=== PATIENT | male | born 1935 | race Caucasian/White ===

== ENCOUNTER 2017-09-09 16:13 | Inpatient (IN) | payer MEDICARE ==
[~2017-09-09] VITALS: Ht 177.8 cm; Wt 79.4 kg
--- NOTE | 2017-09-09 16:29 | Emergency Room Report ---
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 reports that the patient does have Alzheimer's And sometimes does not get the full history There was no reports of vomiting or diarrhea patient has gained significant weight over the past 5 days Allergies: Coded Allergies: SULFA (SULFONAMIDE ANTIBIOTICS) (Unverified Allergy, Unknown, 09/09/17) Uncoded Allergies: SULFA (Allergy, Unknown, 09/09/17) Patient History Past Medical History: see triage record Pertinent Family History: none Reviewed Nursing Documentation: PMH: Agreed; PSxH: Agreed Nursing Documentation-PMH Past Medical History: No History, Except For Review of Systems All Other Systems: negative except mentioned in HPI Physical Exam Vital Signs Date Time Temp Pulse Resp B/P (MAP) Pulse Ox O2 Delivery O2 Flow Rate FiO2 09/09/17 16:09 98.1 90 20 128/75 97 Room Air 98.1 Sp02 EP Interpretation: reviewed, normal General Appearance: well appearing Head: normocephalic, atraumatic Eyes: bilateral eye PERRL, bilateral eye EOMI ENT: hearing grossly normal, normal pharynx, TMs + canals normal, uvula midline Neck: full range of motion, supple, no meningismus, no bony tend Respiratory: no respiratory distress, no retraction, no accessory muscle use, crackles - bilaterally Cardiovascular #1: normal peripheral pulses, regular rate, rhythm, no gallop, no JVD, no murmur Gastrointestinal: normal bowel sounds, non tender, no organomegaly, no guarding , no hernia, no pulsatile mass, no rebound, other - Positive ascites Genitourinary: no CVA tenderness Musculoskeletal: normal inspection Neurologic: oriented x3, responsive, home and family living professor III-XII nml as tested, motor strength/ tone normal, sensory intact Psychiatric: mood/affect normal Skin: warm/dry, palpation normal, other - edema bilaterally Lymphatic: normal inspection, no adenopathy Medical Decision Making Diagnostic Impression: Primary Impression: Dyspnea Additional Impressions: Liver disease Ascites ER Course Patient is complex with multiple differentials considered Requiring blood work and imaging Imaging does not show any large effusion blood work revealing abnormal liver enzymes Patient is mildly tachypneic Appears to likely will benefit from paracentesis however does not be to be emergent and is scheduled for next available Labs Test 09/09/17 17:15 09/09/17 20:45 White Blood Count 9.3 K/UL (4.8-10.8) Red Blood Count 3.07 M/UL (4.70-6.10) Hemoglobin 10.8 G/DL (14.2-18.0) Hematocrit 33.3 % (42.0-52.0) Mean Corpuscular Volume 109 FL (80-99) Mean Corpuscular Hemoglobin 35.1 PG (27.0-31.0) Mean Corpuscular Hemoglobin Concent 32.3 G/DL (32.0-36.0) Red Cell Distribution Width 17.3 % (11.6-14.8) Platelet Count 217 K/UL (150-450) Mean Platelet Volume 7.7 FL (6.5-10.1) Neutrophils (%) (Auto) 69.9 % (45.0-75.0) Lymphocytes (%) (Auto) 18.1 % (20.0-45.0) Monocytes (%) (Auto) 7.3 % (1.0-10.0) Eosinophils (%) (Auto) 2.8 % (0.0-3.0) Basophils (%) (Auto) 1.9 % (0.0-2.0) Prothrombin Time 14.7 SEC (9.30-11.50) Prothromb Time International Ratio 1.4 (0.9-1.1) Activated Partial Thromboplast Time 32 SEC (23-33) Sodium Level 139 MMOL/L (136-145) Potassium Level 5.7 MMOL/L (3.5-5.1) Chloride Level 108 MMOL/L (98-107) Carbon Dioxide Level 21 MMOL/L (21-32) Anion Gap 10 mmol/L (5-15) Blood Urea Nitrogen 27 mg/dL (7-18) Creatinine 1.5 MG/DL (0.55-1.30) Estimat Glomerular Filtration Rate mL/min (>60) Glucose Level 144 MG/DL (74-106) Calcium Level 8.3 MG/DL (8.5-10.1) Total Bilirubin 2.2 MG/DL (0.2-1.0) Direct Bilirubin 1.2 MG/DL (0.0-0.3) Aspartate Amino Transf (AST/SGOT) 143 U/L (15-37) Alanine Aminotransferase (ALT/SGPT) 68 U/L (12-78) Alkaline Phosphatase 195 U/L (46-116) Total Creatine Kinase 144 U/L (26-308) Creatine Kinase MB 1.9 NG/ML (0.0-3.6) Creatine Kinase MB Relative Index 1.3 Troponin I 0.014 ng/mL (0.000-0.056) 0.015 ng/mL (0.000-0.056) Pro-B-Type Natriuretic Peptide 247 pg/mL (0-125) Total Protein 7.1 G/DL (6.4-8.2) Albumin 2.2 G/DL (3.4-5.0) Globulin 4.9 g/dL Albumin/Globulin Ratio 0.4 (1.0-2.7) Lipase 553 U/L (73-393) Rhythm Strip Diag. Results EP Interpretation: yes Rate: 78 Rhythm: NSR, no PVC's, no ectopy Chest X-Ray Diagnostic Results Chest X-Ray Diagnostic Results : Chest X-Ray Ordered: Yes # of Views/Limited/Complete: 1 View Indication: Chest Pain EP Interpretation: Yes Interpretation: no consolidation, no effusion, no pneumothorax, other - Borderline cardiomegaly Impression: No acute disease Electronically Signed by: Ekaterina Reynoso DO Last Vital Signs Date Time Temp Pulse Resp B/P (MAP) Pulse Ox O2 Delivery O2 Flow Rate FiO2 09/09/17 16:09 98.1 90 20 128/75 97 Room Air 98.1 Status: improved Disposition: ADMITTED INPATIENT Condition: Serious Ekaterina Reynoso DO September 09, 2017 16:29
[2017-09-09 17:45] LABS: BASOPHILS % (AUTO) 1.9 % (0.0-2.0); EOSINOPHILS % (AUTO) 2.8 % (0.0-3.0); HEMATOCRIT 33.3 % (42.0-52.0); HEMOGLOBIN 10.8 G/DL (14.2-18.0); LYMPHOCYTES % (AUTO) 18.1 % (20.0-45.0); MEAN CORPUSCULAR VOLUME 109 FL (80-99); MONOCYTES % (AUTO) 7.3 % (1.0-10.0); NEUTROPHILS % (AUTO) 69.9 % (45.0-75.0); PLATELET COUNT 217 K/UL (150-450); RED BLOOD COUNT 3.07 M/UL (4.70-6.10); RED CELL DISTRIBUTION WIDTH 17.3 % (11.6-14.8); WHITE BLOOD COUNT 9.3 K/UL (4.8-10.8)
[2017-09-09 17:48] LABS: INR 1.4 (0.9-1.1)
[2017-09-09 17:49] LABS: ANION GAP 10 mmol/L (5-15); BLOOD UREA NITROGEN 27 mg/dL (7-18); CALCIUM 8.3 MG/DL (8.5-10.1); CARBON DIOXIDE 21 MMOL/L (21-32); CHLORIDE 108 MMOL/L (98-107); CREATININE 1.5 MG/DL (0.55-1.30); POTASSIUM 5.7 MMOL/L (3.5-5.1); SODIUM 139 MMOL/L (136-145)
[2017-09-09] MEDS ORDERED: ARICEPT10 MG ORAL (17:50)
[2017-09-09] MEDS ORDERED: REMERON15 MG ORAL (17:50)
[2017-09-09] MEDS ORDERED: ASPIR 8181 MG ORAL (17:50)
[2017-09-09] MEDS ORDERED: PANTOPRAZOLE SO40 MG ORAL (17:50)
[2017-09-09] MEDS ORDERED: MEGESTROL400 MG/11 PO (17:50)
[2017-09-09] MEDS ORDERED: VITAMIN B-12500 MCG ORAL (17:50)
[2017-09-09] MEDS ORDERED: VITAMIN D1000 UNI1 ORAL (17:50)
[2017-09-09] MEDS ORDERED: CLOPIDOGREL75 MG ORAL (17:50)
[2017-09-09] MEDS ORDERED: TAMSULOSIN HCL0.4 MG ORAL (17:50)
[2017-09-09] MEDS ORDERED: FOLIC ACID1 MG ORAL (17:50)
[2017-09-09] MEDS ORDERED: RAPAFLO8 MG ORAL (17:50)
[2017-09-09] MEDS ORDERED: CRESTOR20 MG ORAL (17:50)
[2017-09-09 18:00] VITALS: BP 134/72
[2017-09-09 18:05] LABS: ALANINE AMINOTRANSFERASE 68 U/L (12-78); ALBUMIN 2.2 G/DL (3.4-5.0); ALBUMIN/GLOBULIN RATIO 0.4 (1.0-2.7); ALKALINE PHOSPHATASE 195 U/L (46-116); ASPARTATE AMINO TRANSFERASE 143 U/L (15-37); BILIRUBIN,TOTAL 2.2 MG/DL (0.2-1.0); CKMB 1.9 NG/ML (0.0-3.6); CREATINE KINASE 144 U/L (26-308)
[2017-09-09 18:11] LABS: BILIRUBIN,DIRECT 1.2 MG/DL (0.0-0.3)
[2017-09-09] MEDS ORDERED: Sodium Polystyrene Sulfonate 15gm Powder ORAL ONE (18:30)
[2017-09-09] MEDS ORDERED: Sodium Polystyrene Sulfonate 15gm Powder ONE (18:34)
[2017-09-09] MEDS ORDERED: Albuterol/Ipratropium 3ml neb HHN PRN (18:45)
--- NOTE | 2017-09-09 18:51 | History and Physical ---
History of Present Illness General Date patient seen: September 09, 2017 Time patient seen: 18:49 Reason for Hospitalization: Dyspnea/Respdistress Present Illness HPI This is a 81 y/o male with a PMH of liver cirrhosis w/ ascites, renal insufficiency, HTN, anemia, BPH, pancreatitis, pancytopenia, CAD s/p PCI with TIGRE x 2 in 2013, and s/p cervical fusion who presented to ED for SOB. Patient states that SOB was worsening, and his PCP doctor at [facility] advised him to go to the ER. Patient also reports generalized abdominal pain but no nausea or vomiting. Patient was noted to have a K of 5.7 and was given kayexalate in the ER and lipase in the 300s. Paracentesis was ordered per ED given ascites and SOB. Patient also stated that he was recently admitted to [facility] from 08/25-. Per chart review from [facility], patient was aditted for dizziness and generalized weakness which was attributed to the lasix and aldactone he was previously on. Patient was also noted to have pancreatitis, which resolved while he was in the hospital. Lasix and aldactone subsequently were stopped also given hyperkalemia. Patient underwent paracentesis on 09/03 with 3L out along with 25g albumin. Patient's blood pressure continued to remain low and therefore metoprolol was discontinued upon discharge from [facility]..Patient's Cr improved from 1.8 to 1.1 upon discharge. Patient was also noted to have poor PO intake and was started on megace. At this time, patient denies any chest pain, n /v, focal deficits, headaches, f/c, d/c. Denies alcohol or tobacco abuse. Allergies: Coded Allergies: SULFA (SULFONAMIDE ANTIBIOTICS) (Unverified Allergy, Unknown, 09/09/17) Uncoded Allergies: SULFA (Allergy, Unknown, 09/09/17) Medication History Scheduled Aspirin* (Aspir 81*), 81 MG ORAL DAILY, (Reported) Cholecalciferol (Vitamin D3)* (Vitamin D*), 4,000 UNITS ORAL DAILY, (Reported) Clopidogrel* (Clopidogrel*), 75 MG ORAL DAILY, (Reported) Cyanocobalamin (Vitamin B-12)* (Vitamin B-12*), 1,000 MCG ORAL DAILY, (Reported) Donepezil Hcl* (Aricept*), 10 MG ORAL DAILY, (Reported) Folic Acid* (Folic Acid*), 1 MG ORAL DAILY, (Reported) Megestrol Acetate (Megestrol Acetate), 400 MG PO BID, (Reported) Mirtazapine* (Remeron*), 15 MG ORAL BEDTIME, (Reported) Pantoprazole* (Pantoprazole*), 40 MG ORAL DAILY, (Reported) Rosuvastatin Calcium* (Crestor*), 20 MG ORAL DAILY, (Reported) Silodosin (Rapaflo), 8 MG ORAL DAILY, (Reported) Tamsulosin Hcl (Tamsulosin Hcl*), 0.4 MG ORAL BEDTIME, (Reported) Patient History History Provided By: Patient, Family Member Healthcare decision maker Resuscitation status Advanced Directive on File No Review of Systems Constitutional: Reports: weakness Eye: Reports: no symptoms ENT: Reports: no symptoms Respiratory: Reports: shortness of breath Cardiovascular: Reports: no symptoms Gastrointestinal: Reports: abdominal pain Genitourinary: Reports: no symptoms Musculoskeletal: Reports: no symptoms Skin: Reports: no symptoms Psychiatric: Reports: no symptoms Neurological: Reports: no symptoms Endocrine: Reports: no symptoms Hematologic/Lymphatic: Reports: no symptoms Physical Exam General Appearance: alert, mild distress HEENT: normocephalic, atraumatic Neck: non-tender, normal alignment, supple Respiratory/Chest: chest wall non-tender, lungs clear, normal breath sounds Cardiovascular/Chest: normal peripheral pulses, normal rate, regular rhythm Abdomen: normal bowel sounds, soft, tender Extremities: normal range of motion, non-tender Skin Exam: normal pigmentation, warm/dry Neurologic: store consultant II-XII grossly normal, no motor/sensory deficits, alert, oriented x 3 Last 24 Hour Vital Signs Date Time Temp Pulse Resp B/P (MAP) Pulse Ox O2 Delivery O2 Flow Rate FiO2 09/09/17 18:00 98.3 85 19 134/72 100 Nasal Cannula 2.0 98.3 09/09/17 16:30 92 21 Room Air 09/09/17 16:09 98.1 90 20 128/75 97 Room Air 98.1 Laboratory Tests Test 09/09/17 17:15 White Blood Count 9.3 K/UL (4.8-10.8) Red Blood Count 3.07 M/UL (4.70-6.10) L Hemoglobin 10.8 G/DL (14.2-18.0) L Hematocrit 33.3 % (42.0-52.0) L Mean Corpuscular Volume 109 FL (80-99) H Mean Corpuscular Hemoglobin 35.1 PG (27.0-31.0) H Mean Corpuscular Hemoglobin Concent 32.3 G/DL (32.0-36.0) Red Cell Distribution Width 17.3 % (11.6-14.8) H Platelet Count 217 K/UL (150-450) Mean Platelet Volume 7.7 FL (6.5-10.1) Neutrophils (%) (Auto) 69.9 % (45.0-75.0) Lymphocytes (%) (Auto) 18.1 % (20.0-45.0) L Monocytes (%) (Auto) 7.3 % (1.0-10.0) Eosinophils (%) (Auto) 2.8 % (0.0-3.0) Basophils (%) (Auto) 1.9 % (0.0-2.0) Prothrombin Time 14.7 SEC (9.30-11.50) H Prothromb Time International Ratio 1.4 (0.9-1.1) H Activated Partial Thromboplast Time 32 SEC (23-33) Sodium Level 139 MMOL/L (136-145) Potassium Level 5.7 MMOL/L (3.5-5.1) H Chloride Level 108 MMOL/L (98-107) H Carbon Dioxide Level 21 MMOL/L (21-32) Anion Gap 10 mmol/L (5-15) Blood Urea Nitrogen 27 mg/dL (7-18) H Creatinine 1.5 MG/DL (0.55-1.30) H Estimat Glomerular Filtration Rate mL/min (>60) Glucose Level 144 MG/DL (74-106) H Calcium Level 8.3 MG/DL (8.5-10.1) L Total Bilirubin 2.2 MG/DL (0.2-1.0) H Direct Bilirubin 1.2 MG/DL (0.0-0.3) H Aspartate Amino Transf (AST/SGOT) 143 U/L (15-37) H Alanine Aminotransferase (ALT/SGPT) 68 U/L (12-78) Alkaline Phosphatase 195 U/L (46-116) H Total Creatine Kinase 144 U/L (26-308) Creatine Kinase MB 1.9 NG/ML (0.0-3.6) Creatine Kinase MB Relative Index 1.3 Troponin I 0.014 ng/mL (0.000-0.056) Pro-B-Type Natriuretic Peptide 247 pg/mL (0-125) H Total Protein 7.1 G/DL (6.4-8.2) Albumin 2.2 G/DL (3.4-5.0) L Globulin 4.9 g/dL Albumin/Globulin Ratio 0.4 (1.0-2.7) L Lipase 553 U/L (73-393) H Height (Feet): 5 Height (Inches): 10.00 Weight (Pounds): 175 Assessment/Plan Problem List: (1) Liver cirrhosis ICD Codes: K74.60 - Unspecified cirrhosis of liver SNOMED: 87111472 (2) Renal insufficiency ICD Codes: N28.9 - Disorder of kidney and ureter, unspecified SNOMED: 156370297, 278220799 (3) BPH (benign prostatic hyperplasia) ICD Codes: N40.0 - Benign prostatic hyperplasia without lower urinary tract symptoms SNOMED: 633097367 (4) Anemia ICD Codes: D64.9 - Anemia, unspecified SNOMED: 926506220 (5) Hyperkalemia ICD Codes: E87.5 - Hyperkalemia SNOMED: 57025199 (6) CAD S/P percutaneous coronary angioplasty ICD Codes: I25.10 - Atherosclerotic heart disease of [place] coronary artery without angina pectoris; Z98.61 - Coronary angioplasty status SNOMED: 402408069 (7) S/P drug eluting coronary stent placement ICD Codes: Z95.5 - Presence of coronary angioplasty implant and graft SNOMED: 92982749, 433999159 (8) Pancreatitis ICD Codes: K85.90 - Acute pancreatitis without necrosis or infection, unspecified SNOMED: 29261715 (9) Ascites ICD Codes: R18.8 - Other ascites SNOMED: 034717553 (10) Dyspnea ICD Codes: R06.00 - Dyspnea, unspecified SNOMED: 657129714 Status: stable Assessment/Plan Admit to telemetry GI consulted NPO, bowel rest IVF with D5 1/2 NS at low rate, 50 cc/hr Check etiology for pancreatitis - check TG, EtOH, Check CRP, LDH Paracentesis ordered by ED check Abd U/S, r/o gallstone pancreatitis Replete lytes prn Monitor CBC, BMP, Mg Check EKG. Trend trops x 3 given SOB. F/u CXR. Check bilateral lower extremity venous duplex Pain control and supportive care Resume home meds. Hold plavix given paracentesis DVT Prophylaxis: SCD Code Status: Full Hospital Classification Declaration: Based on this initial evaluation, and depending on the patient's clinical course, I anticipate that this patient will require hospitalization for 2-3 days for pancreatitis, ascites and close respiratory/hemodynamic monitoring. Disposition: Once the patient is stable to leave the hospital, I anticipate the patient will likely be discharged to the following environment: home with HH vs SNF I spent 73 minutes on this patient's case, and 38 minutes were dedicated to counseling and/or care coordination. Discussed with patient/family, nursing staff, SW/CM, and GI regarding clinical status, treatment course, and disposition planning. Time of note may not reflect time of encounter. Zoey Fernandes NP September 09, 2017 18:51
[2017-09-09 20:00] VITALS: BP 137/77
[2017-09-09] MEDS: D5 1/2NS 1,000 ML IV SCH (20:31)
[2017-09-09] MEDS: traMADol 50mg tab ORAL PRN (23:52)
[2017-09-10] VITALS: BP 130/75
[2017-09-10 04:00] VITALS: BP 137/75
--- NOTE | 2017-09-10 07:50 | Diagnostic Imaging Report ---
Indication: Shortness of breath Technique: One view of the chest Comparison: none Findings: Right hemidiaphragm is elevated. Inspiration is overall suboptimal. Lungs and pleural spaces are clear. The heart size is normal Impression: No acute process
[2017-09-10 08:00] VITALS: BP 135/77
[2017-09-10] MEDS: Megace 400mg/10ml Susp ORAL SCH ×2 (08:55→18:16)
[2017-09-10] MEDS: Aspirin Baby 81mg ORAL SCH (08:55)
[2017-09-10] MEDS: Vitamin D 1000 IU Tab ORAL SCH (08:56)
[2017-09-10] MEDS: Vitamin B-12 500mcg tab ORAL SCH (08:56)
--- NOTE | 2017-09-10 11:04 | GI Initial Consult Note ---
History of Present Illness General Date patient seen: September 10, 2017 Time patient seen: 11:01 Reason for Hospitalization: Dyspnea/Respdistress Referring physician: CHRIS MULLEN Reason for Consultation: CIRRHOSIS Present Illness HPI This is a 81 y/o male with a PMH of liver cirrhosis w/ ascites, renal insufficiency, HTN, anemia, BPH, pancreatitis, pancytopenia, CAD s/p PCI with TIGRE x 2 in 2013, and s/p cervical fusion who presented to ED for SOB. Patient states that SOB was worsening, and his PCP doctor at [facility] advised him to go to the ER. Patient also reports generalized abdominal pain but no nausea or vomiting. Patient was noted to have a K of 5.7 and was given kayexalate in the ER and lipase in the 300s. Paracentesis was ordered per ED given ascites and SOB. Patient also stated that he was recently admitted to [facility] from 08/25-. Per chart review from [facility], patient was aditted for dizziness and generalized weakness which was attributed to the lasix and aldactone he was previously on. Patient was also noted to have pancreatitis, which resolved while he was in the hospital. Lasix and aldactone subsequently were stopped also given hyperkalemia. Patient underwent paracentesis on 09/03 with 3L out along with 25g albumin. Patient's blood pressure continued to remain low and therefore metoprolol was discontinued upon discharge from [facility]..Patient's Cr improved from 1.8 to 1.1 upon discharge. Patient was also noted to have poor PO intake and was started on megace. At this time, patient denies any chest pain, n /v, focal deficits, headaches, f/c, d/c. Denies alcohol or tobacco abuse. GI consulted for cirrhosis management. PT seen, awake A&Ox3 NAD with no active s/sx of N/V/D with caregiver at bedside. HPI as noted above. Labs reviewed, with macrocytic hyperchromic anemia, abrnormal LFTs, generalized jaundice, and elevated lipase levels. Unknown history of endoscopy / colonoscopy. Home Meds Reported Medications Tamsulosin Hcl (TAMSULOSIN HCL*) 0.4 Mg Cap.er.24h, 0.4 MG ORAL BEDTIME, CAP 09/09/17 Rosuvastatin Calcium* (CRESTOR*) 20 Mg Tablet, 20 MG ORAL DAILY, TAB 5/16/18 Clopidogrel* (CLOPIDOGREL*) 75 Mg Tablet, 75 MG ORAL DAILY, TAB 09/09/17 Silodosin (RAPAFLO) 8 Mg Capsule, 8 MG ORAL DAILY, CAP 09/09/17 Mirtazapine* (REMERON*) 15 Mg Tablet, 15 MG ORAL BEDTIME, TAB 09/09/17 Pantoprazole* (PANTOPRAZOLE*) 40 Mg Tablet.dr, 40 MG ORAL DAILY, TAB 09/09/17 Megestrol Acetate (MEGESTROL ACETATE) 400 Mg/10 Ml Oral.susp, 400 MG PO BID, ML 09/09/17 Folic Acid* (FOLIC ACID*) 1 Mg Tablet, 1 MG ORAL DAILY, TAB 09/09/17 Cyanocobalamin (Vitamin B-12)* (VITAMIN B-12*) 500 Mcg Tablet, 1000 MCG ORAL DAILY, #30 TAB 0 Refills 09/09/17 Cholecalciferol (Vitamin D3)* (VITAMIN D*) 1,000 Unit Tablet, 4000 UNITS ORAL DAILY, #30 TAB 0 Refills 09/09/17 Aspirin* (ASPIR 81*) 81 Mg Tablet.dr, 81 MG ORAL DAILY, TAB 09/09/17 Donepezil Hcl* (ARICEPT*) 10 Mg Tablet, 10 MG ORAL DAILY, TAB 09/09/17 Med list reviewed/reconciled: Yes Allergies: Coded Allergies: SULFA (SULFONAMIDE ANTIBIOTICS) (Unverified Allergy, Unknown, 09/09/17) Uncoded Allergies: SULFA (Allergy, Unknown, 09/09/17) Patient History History Provided By: Patient, Medical Record Social History: Reports: alcohol use - last use approximately 4 years ago Review of Systems All Other Systems: negative except mentioned in HPI Physical Exam Vital Signs Date Time Temp Pulse Resp B/P (MAP) Pulse Ox O2 Delivery O2 Flow Rate FiO2 09/09/17 16:09 98.1 90 20 128/75 97 Room Air 98.1 09/09/17 18:00 2.0 Sp02 EP Interpretation: reviewed, normal Labs Laboratory Tests Test 09/09/17 17:15 09/09/17 20:45 White Blood Count 9.3 K/UL (4.8-10.8) Red Blood Count 3.07 M/UL (4.70-6.10) L Hemoglobin 10.8 G/DL (14.2-18.0) L Hematocrit 33.3 % (42.0-52.0) L Mean Corpuscular Volume 109 FL (80-99) H Mean Corpuscular Hemoglobin 35.1 PG (27.0-31.0) H Mean Corpuscular Hemoglobin Concent 32.3 G/DL (32.0-36.0) Red Cell Distribution Width 17.3 % (11.6-14.8) H Platelet Count 217 K/UL (150-450) Mean Platelet Volume 7.7 FL (6.5-10.1) Neutrophils (%) (Auto) 69.9 % (45.0-75.0) Lymphocytes (%) (Auto) 18.1 % (20.0-45.0) L Monocytes (%) (Auto) 7.3 % (1.0-10.0) Eosinophils (%) (Auto) 2.8 % (0.0-3.0) Basophils (%) (Auto) 1.9 % (0.0-2.0) Prothrombin Time 14.7 SEC (9.30-11.50) H Prothromb Time International Ratio 1.4 (0.9-1.1) H Activated Partial Thromboplast Time 32 SEC (23-33) Sodium Level 139 MMOL/L (136-145) Potassium Level 5.7 MMOL/L (3.5-5.1) H Chloride Level 108 MMOL/L (98-107) H Carbon Dioxide Level 21 MMOL/L (21-32) Anion Gap 10 mmol/L (5-15) Blood Urea Nitrogen 27 mg/dL (7-18) H Creatinine 1.5 MG/DL (0.55-1.30) H Estimat Glomerular Filtration Rate mL/min (>60) Glucose Level 144 MG/DL (74-106) H Calcium Level 8.3 MG/DL (8.5-10.1) L Total Bilirubin 2.2 MG/DL (0.2-1.0) H Direct Bilirubin 1.2 MG/DL (0.0-0.3) H Aspartate Amino Transf (AST/SGOT) 143 U/L (15-37) H Alanine Aminotransferase (ALT/SGPT) 68 U/L (12-78) Alkaline Phosphatase 195 U/L (46-116) H Total Creatine Kinase 144 U/L (26-308) Creatine Kinase MB 1.9 NG/ML (0.0-3.6) Creatine Kinase MB Relative Index 1.3 Troponin I 0.014 ng/mL (0.000-0.056) 0.015 ng/mL (0.000-0.056) Pro-B-Type Natriuretic Peptide 247 pg/mL (0-125) H Total Protein 7.1 G/DL (6.4-8.2) Albumin 2.2 G/DL (3.4-5.0) L Globulin 4.9 g/dL Albumin/Globulin Ratio 0.4 (1.0-2.7) L Lipase 553 U/L (73-393) H General Appearance: well appearing, no apparent distress, alert, thin, other - jaundice Head: normocephalic EENT: PERRL/EOMI, normal ENT inspection Neck: supple Respiratory: normal breath sounds, no respiratory distress Cardiovascular: normal rate Gastrointestinal: non tender, soft, distended, ascites Rectal: deferred Genitourinary: deferred Musculoskeletal: normal inspection, back normal Neurologic: normal inspection, alert, oriented x3, responsive Psychiatric: normal inspection, judgement/insight normal, memory normal Skin: normal inspection, normal color, no rash, warm/dry, palpation normal, well hydrated Lymphatic: normal inspection, no adenopathy Current Medications Current Medications Medications (Trade) Dose Ordered Sig/Glenn Route PRN Reason Start Time Stop Time Status Last Admin Dose Admin Acetaminophen (Tylenol) 650 mg Q6H PRN ORAL T>100.5 09/09/17 18:45 10/09/17 18:44 Albuterol/ Ipratropium (Albuterol/ Ipratropium) 3 ml TIDPRN PRN HHN Shortness of Breath 09/09/17 18:45 09/14/17 18:44 Aspirin (ASA) 81 mg DAILY ORAL 09/10/17 09:00 10/10/17 08:59 09/10/17 08:55 Atorvastatin Calcium (Lipitor) 20 mg BEDTIME ORAL 09/10/17 21:00 10/10/17 20:59 Cyanocobalamin (Vitamin B-12) 1,000 mcg DAILY ORAL 09/10/17 09:00 10/10/17 08:59 09/10/17 08:56 Dextrose (Dextrose 50%) 25 ml STAT PRN IV Hypoglycemia 09/09/17 18:45 10/09/17 18:44 Dextrose (Dextrose 50%) 50 ml STAT PRN IV Hypoglycemia 09/09/17 18:45 10/09/17 18:44 Dextrose/Sodium Chloride 1,000 ml @ 50 mls/hr Q20H IV 09/09/17 19:32 10/09/17 19:31 09/09/17 20:31 Diphenhydramine HCl (Benadryl) 25 mg Q6H PRN ORAL Itching/Pruritis 09/09/17 18:45 10/09/17 18:44 Donepezil HCl (Aricept) 10 mg QHS ORAL 09/10/17 21:00 10/10/17 20:59 Folic Acid (Folate) 1 mg DAILY ORAL 09/10/17 09:00 10/10/17 08:59 09/10/17 08:55 Megestrol Acetate (Megace) 400 mg TWICE A DAY ORAL 09/10/17 09:00 10/10/17 08:59 09/10/17 08:55 Mirtazapine (Remeron) 15 mg BEDTIME ORAL 09/10/17 21:00 10/10/17 20:59 Ondansetron HCl (Zofran) 4 mg Q6H PRN IVP Nausea & Vomiting 09/09/17 18:45 10/09/17 18:44 Pantoprazole (Protonix) 40 mg DAILY ORAL 09/10/17 09:00 10/10/17 08:59 09/10/17 08:55 Tamsulosin HCl (Flomax) 0.4 mg BEDTIME ORAL 09/10/17 21:00 10/10/17 20:59 Tramadol HCl (Ultram) 50 mg Q6H PRN ORAL Moderate Breakthru Pain (5-7) 09/09/17 19:00 09/16/17 18:59 09/09/17 23:52 Vitamin D (Vitamin D) 4,000 intlu DAILY ORAL 09/10/17 09:00 10/10/17 08:59 09/10/17 08:56 GI: Plan Problems: (1) Pancreatitis (2) Liver cirrhosis (3) Anemia (4) Ascites (5) Dyspnea Plan symptomatic / supportive care abdominal US / paracentesis scheduled for today >> send labs r/o SBP okay to adv to low sodium diet after procedure avoid hepatotoxic drugs ppi electrolyte correction folate/MVI/B12 fu labs, hepatitis panel trend lipase Discussed with Dr. Gilliland. Thank you for this patient referral, we will follow. The patient was seen and examined at bedside and all new and available data was reviewed in the patients chart. I agree with the above findings, impression and plan. (Patient seen earlier today. Signature stamp does not reflect patient encounter time.). - MD Zaira ChaconAvenir Behavioral Health Center At SurpriseAubreyFlaquito DUMPSTER DRIVER September 10, 2017 11:04
[2017-09-10 11:44] VITALS: BP 114/71
[2017-09-10] MEDS ORDERED: Propranolol 10mg tab ORAL SCH ×3 (12:30→21:00)
[2017-09-10] MEDS: traMADol 50mg tab ORAL PRN ×2 (13:44→21:40)
[2017-09-10] MEDS ORDERED: Isovue-300 100ml vial INJ PRN (14:00)
[2017-09-10] MEDS ORDERED: Gastrograffin 30ml ORAL PRN (14:00)
--- NOTE | 2017-09-10 14:32 | Diagnostic Imaging Report ---
Indications: Ascites Technique: Ultrasound used to localize optimal puncture site. Sterile prepping and draping right lower quadrant. Local anesthesia with 1% lidocaine. Under real-time ultrasound guidance, puncture peritoneal space using paracentesis needle. Stylet removed. Catheter placed to vacuum bottle suction. Total 1.7 liters of fluid aspirated. Patient tolerated procedure well, without immediate complication. Findings: Followup sonography demonstrates near complete resolution of peritoneal fluid. Impression: Successful ultrasound-guided paracentesis, yielding 1.7 liters of fluid
--- NOTE | 2017-09-10 14:39 | Diagnostic Imaging Report ---
Indication: Abdominal tenderness, abnormal liver function tests, abnormal renal function tests, pancreatitis, history of cirrhosis Technique: Guidry-scale and duplex images of the upper abdomen were obtained Comparison: none Findings: Exam is limited by patient body habitus, inability to position optimally. Gallbladder is unremarkable, without stones, wall thickening, nor pericholecystic fluid. Sonographic [place]'s sign is negative. Common bile duct measures 8 mm in diameter. No intrahepatic biliary ductal dilatation. Liver demonstrates normal echogenicity, no focal abnormality. However, there is equivocal slight surface nodularity Portal vein and hepatic veins are patent. Pancreas is not well demonstrated, visualized portions appear unremarkable. What is probably a prominent bowel loop is seen adjacent to the pancreas. Spleen is unremarkable. Left kidney measures 10.1 cm in length. Right kidney measures 9.7 cm length. Both kidneys demonstrate normal echogenicity. There is no hydronephrosis. No focal abnormality . Abdominal aorta is partially obscured by bowel gas, visualized portions are non-aneurysmal . Small amount of ascites fluid is present Impression: Somewhat limited exam, as described. Suboptimal visualization of portions of the pancreas and abdominal aorta Negative for gallstones. Mildly dilated common bile duct. Downstream obstruction not completely excludable. Correlate with clinical findings, consider MRCP for better characterization if clinically indicated Ascites Equivocal slight hepatic surface nodularity, could indicate cirrhotic changes
--- NOTE | 2017-09-10 14:44 | Diagnostic Imaging Report ---
Indication: Bilateral hip pain Technique: One view of the pelvis. 2 views of each hip Comparison: none Findings: No acute fractures. No dislocations. The joint spaces are preserved. The bones appear osteoporotic. Some degenerative proliferative changes are seen of the inferior pubic symphyses and the bilateral iliac crests Impression: No acute process Note, however, that in elderly osteoporotic patients nondisplaced hip or pelvic fractures can easily be occult. Consider cross-sectional imaging if there is high clinical suspicion
[2017-09-10 16:00] VITALS: BP 123/65
[2017-09-10 16:11] LABS: APPEARANCE,URINE CLEAR; BILIRUBIN, URINE NEGATIVE (NEGATIVE); GLUCOSE, URINE (UA) NEGATIVE (NEGATIVE); KETONES,URINE 1+ (NEGATIVE); LEUKOCYTE ESTERASE ,URINE NEGATIVE (NEGATIVE); NITRITE,URINE NEGATIVE (NEGATIVE); PH,URINE 6 (4.5-8.0); PROTEIN,URINE NEGATIVE (NEGATIVE); UROBILINOGEN,URINE 4 MG/DL (0.0-1.0)
[2017-09-10 16:12] LABS: COLOR,URINE YELLOW
--- NOTE | 2017-09-10 16:34 | General Progress Note ---
Assessment/Plan Problem List: (1) Liver cirrhosis ICD Codes: K74.60 - Unspecified cirrhosis of liver SNOMED: 04217421 (2) Renal insufficiency ICD Codes: N28.9 - Disorder of kidney and ureter, unspecified SNOMED: 978862431, 645698148 (3) BPH (benign prostatic hyperplasia) ICD Codes: N40.0 - Benign prostatic hyperplasia without lower urinary tract symptoms SNOMED: 405395421 (4) Anemia ICD Codes: D64.9 - Anemia, unspecified SNOMED: 481389615 (5) Hyperkalemia ICD Codes: E87.5 - Hyperkalemia SNOMED: 12167778 (6) CAD S/P percutaneous coronary angioplasty ICD Codes: I25.10 - Atherosclerotic heart disease of [place] coronary artery without angina pectoris; Z98.61 - Coronary angioplasty status SNOMED: 616832029 (7) S/P drug eluting coronary stent placement ICD Codes: Z95.5 - Presence of coronary angioplasty implant and graft SNOMED: 35392859, 533719727 (8) Pancreatitis ICD Codes: K85.90 - Acute pancreatitis without necrosis or infection, unspecified SNOMED: 39755707 (9) Ascites ICD Codes: R18.8 - Other ascites SNOMED: 607131112 (10) Dyspnea ICD Codes: R06.00 - Dyspnea, unspecified SNOMED: 013350494 (11) Multiple falls ICD Codes: R29.6 - Repeated falls SNOMED: 231684796 (12) Left hip pain ICD Codes: M25.552 - Pain in left hip SNOMED: 06969849 Status: stable, progressing Assessment/Plan GI consulted s/p paracentesis 09/10 with 1.5 L out CLD and ADAT to low-sodium diet F/u abdominal U/S read Check CT a/p IVF with D5 1/2 NS at low rate, 50 cc/hr Check etiology for pancreatitis - check TG, EtOH, Check CRP, LDH Replete lytes prn Monitor CBC, BMP, Mg Check EKG. Trend trops x 3 given SOB. F/u CXR -- all unremarkable Check bilateral lower extremity venous duplex Check bilateral hip XR r/o fx Pain control and supportive care Resume home meds. Patient refusing CT and labs. Daughter requesting transfer to [facility]. 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 DVT Prophylaxis: SCD Code Status: Full Hospital Classification Declaration: Based on this initial evaluation, and depending on the patient's clinical course, I anticipate that this patient will require hospitalization for 2-3 days for pancreatitis, ascites and close respiratory/hemodynamic monitoring. Disposition: Once the patient is stable to leave the hospital, I anticipate the patient will likely be discharged to the following environment: home with vs SNF I spent 33 minutes on this patient's case, and 22 minutes were dedicated to counseling and/or care coordination. Discussed with patient/family, nursing staff, SW/CM, and GI regarding clinical status, treatment course, and disposition planning. Time of note may not reflect time of encounter. Subjective Date patient seen: September 10, 2017 Time patient seen: 13:00 Allergies: Coded Allergies: SULFA (SULFONAMIDE ANTIBIOTICS) (Unverified Allergy, Unknown, 09/09/17) Uncoded Allergies: SULFA (Allergy, Unknown, 09/09/17) Subjective s/p paracentesis today with 1.5L out reports SOB improved and abdominal pain improved. denies cp. AF, HDS refusing labs and CT. abdominal U/S read pending complaining of left hip pain after multiple falls at home but no blunt head trauma or LOC daughter requesting transfer to [facility] Objective Last 24 Hour Vital Signs Date Time Temp Pulse Resp B/P (MAP) Pulse Ox O2 Delivery O2 Flow Rate FiO2 09/10/17 16:00 96.9 60 20 123/65 98 Room Air 96.9 09/10/17 13:16 77 114/71 09/10/17 12:00 71 09/10/17 11:44 98.2 77 20 114/71 100 Room Air 98.2 09/10/17 08:00 69 09/10/17 08:00 96.4 71 20 135/77 100 Room Air 96.4 09/10/17 04:00 97.0 70 20 137/75 100 Room Air 97.0 09/10/17 04:00 69 09/10/17 00:51 98.6 09/10/17 00:00 73 09/10/17 00:00 97.0 80 18 130/75 100 Nasal Cannula 2.0 97.0 09/09/17 23:52 98.6 09/09/17 20:23 Nasal Cannula 1.0 09/09/17 20:22 98 Nasal Cannula 1.0 09/09/17 20:21 85 18 Nasal Cannula 1.0 09/09/17 20:00 83 09/09/17 20:00 96.8 81 20 137/77 100 Nasal Cannula 2.0 96.8 09/09/17 18:48 98.6 85 19 134/72 100 Nasal Cannula 2.0 98.3 09/09/17 18:00 98.3 85 19 134/72 100 Nasal Cannula 2.0 98.3 09/09/17 16:30 92 21 Room Air Intake and Output 09/09/17 09/10/17 19:00 07:00 Intake Total 0 ml 50 ml Balance 0 ml 50 ml Intake Oral 0 ml IV Total 50 ml # Voids 1 # Bowel Movements 2 Laboratory Tests 09/09/17 17:15: White Blood Count 9.3, Red Blood Count 3.07L, Hemoglobin 10.8L, Hematocrit 33.3L , Mean Corpuscular Volume 109H, Mean Corpuscular Hemoglobin 35.1H, Mean Corpuscular Hemoglobin Concent 32.3, Red Cell Distribution Width 17.3H, Platelet Count 217, Mean Platelet Volume 7.7, Neutrophils (%) (Auto) 69.9, Lymphocytes (%) (Auto) 18.1L, Monocytes (%) (Auto) 7.3, Eosinophils (%) (Auto) 2.8, Basophils (%) (Auto) 1.9, Prothrombin Time 14.7H, Prothromb Time International Ratio 1.4H, Activated Partial Thromboplast Time 32, Sodium Level 139, Potassium Level 5.7H, Chloride Level 108H, Carbon Dioxide Level 21, Anion Gap 10, Blood Urea Nitrogen 27H, Creatinine 1.5H, Estimat Glomerular Filtration Rate , Glucose Level 144H, Calcium Level 8.3L, Total Bilirubin 2.2H, Direct Bilirubin 1.2H, Aspartate Amino Transf (AST/SGOT) 143H, Alanine Aminotransferase (ALT/SGPT) 68, Alkaline Phosphatase 195H, Total Creatine Kinase 144, Creatine Kinase MB 1.9, Creatine Kinase MB Relative Index 1.3, Troponin I 0.014, Pro-B-Type Natriuretic Peptide 247H, Total Protein 7.1, Albumin 2.2L, Globulin 4.9, Albumin/Globulin Ratio 0.4L, Lipase 553H 09/09/17 20:45: Troponin I 0.015 09/10/17 11:58: Body Fluid Albumin [Pending] 09/10/17 15:35: Urine Color Yellow, Urine Appearance Clear, Urine pH 6, Urine Specific [place] 1.015, Urine Protein Negative, Urine Glucose (UA) Negative, Urine Ketones 1+H, Urine Occult Blood Negative, Urine Nitrite Negative, Urine Bilirubin Negative, Urine Urobilinogen 4H, Urine Leukocyte Esterase Negative Height (Feet): 5 Height (Inches): 10.00 Weight (Pounds): 175 General Appearance: no apparent distress, alert EENT: PERRL/EOMI, normal ENT inspection Neck: non-tender, normal alignment, supple Cardiovascular: normal peripheral pulses, normal rate, regular rhythm Respiratory/Chest: chest wall non-tender, lungs clear, normal breath sounds Abdomen: normal bowel sounds, non tender, soft 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
[2017-09-10] MEDS: D5 1/2NS 1,000 ML IV SCH (16:58)
[2017-09-10 20:00] VITALS: BP 126/75
[2017-09-10 20:33] LABS: BASOPHILS % (AUTO) 2.4 % (0.0-2.0); EOSINOPHILS % (AUTO) 4.1 % (0.0-3.0); HEMATOCRIT 29.1 % (42.0-52.0); HEMOGLOBIN 9.8 G/DL (14.2-18.0); LYMPHOCYTES % (AUTO) 20.9 % (20.0-45.0); MEAN CORPUSCULAR VOLUME 106 FL (80-99); MONOCYTES % (AUTO) 6.4 % (1.0-10.0); NEUTROPHILS % (AUTO) 66.1 % (45.0-75.0); PLATELET COUNT 167 K/UL (150-450); RED BLOOD COUNT 2.75 M/UL (4.70-6.10); RED CELL DISTRIBUTION WIDTH 17.1 % (11.6-14.8); WHITE BLOOD COUNT 7.4 K/UL (4.8-10.8)
[2017-09-10 20:47] LABS: LACTATE DEHYDROGENASE 258 U/L (81-234)
[2017-09-10] MEDS: Tamsulosin 0.4mg cap ORAL SCH ×2 (21:00→21:38)
[2017-09-10] MEDS: Atorvastatin 20mg tab ORAL SCH ×2 (21:00→21:38)
[2017-09-10] MEDS: Donepezil 10mg tab ORAL SCH ×2 (21:00→21:39)
[2017-09-10 21:11] LABS: ANION GAP 10 mmol/L (5-15); BLOOD UREA NITROGEN 26 mg/dL (7-18); CALCIUM 8.4 MG/DL (8.5-10.1); CARBON DIOXIDE 19 MMOL/L (21-32); CHLORIDE 110 MMOL/L (98-107); CHOLESTEROL 100 MG/DL (< 200); CREATININE 1.7 MG/DL (0.55-1.30); HDL CHOLESTEROL 11 MG/DL (40-60); POTASSIUM 3.8 MMOL/L (3.5-5.1); SODIUM 139 MMOL/L (136-145); TRIGLYCERIDES 64 MG/DL (30-150)
[2017-09-11] VITALS: BP 126/58
[2017-09-11 04:00] VITALS: BP 141/68
[2017-09-11 08:00] VITALS: BP 157/85
[2017-09-11] MEDS ORDERED: D5 1/2NS 1000ml IV ONE ×2 (09:50→16:46)
[2017-09-11] MEDS: Megace 400mg/10ml Susp ORAL SCH (10:24)
[2017-09-11] MEDS: Vitamin B-12 500mcg tab ORAL SCH (10:24)
[2017-09-11] MEDS: Aspirin Baby 81mg ORAL SCH (10:24)
[2017-09-11] MEDS: Vitamin D 1000 IU Tab ORAL SCH (10:24)
[2017-09-11 12:00] VITALS: BP 120/69
--- NOTE | 2017-09-11 12:46 | Cardiology Report ---
APPROVED REPORT EKG Measurement Heart [id number] [place] [id number] Normal sinus rhythm Left axis deviation Septal infarct, age undetermined Possible Lateral infarct, age undetermined Abnormal ECG
--- NOTE | 2017-09-11 13:43 | GI Progress Note ---
Assessment/Plan Problems: (1) Multiple falls ICD Codes: R29.6 - Repeated falls SNOMED: 266626277 (2) Ascites ICD Codes: R18.8 - Other ascites SNOMED: 206686081 (3) Liver cirrhosis ICD Codes: K74.60 - Unspecified cirrhosis of liver SNOMED: 17109958 (4) Pancreatitis ICD Codes: K85.90 - Acute pancreatitis without necrosis or infection, unspecified SNOMED: 48845945 (5) Anemia ICD Codes: D64.9 - Anemia, unspecified SNOMED: 227160181 (6) Liver disease ICD Codes: K76.9 - Liver disease, unspecified SNOMED: 072108841 Status: stable Status Narrative Discussed with Dr. Gilliland. Assessment/Plan symptomatic / supportive care s/p paracentesis yielding 1.7 L low sodium diet avoid hepatotoxic drugs ppi electrolyte correction folate/MVI/B12 fu labs, hepatitis panel trend lipase pt to be transferred to [facility] Subjective Gastrointestinal/Abdominal: Reports: no symptoms Objective Last 24 Hour Vital Signs Date Time Temp Pulse Resp B/P (MAP) Pulse Ox O2 Delivery O2 Flow Rate FiO2 09/11/17 12:00 65 09/11/17 12:00 97.8 69 18 120/69 99 Room Air 97.8 09/11/17 08:11 Room Air 21 09/11/17 08:11 84 18 Room Air 21 09/11/17 08:11 97 Room Air 09/11/17 08:00 98.0 71 18 157/85 94 Room Air 98.0 09/11/17 08:00 71 09/11/17 04:00 65 09/11/17 04:00 97.5 65 20 141/68 99 Room Air 97.5 09/11/17 00:00 68 09/11/17 00:00 98.0 66 20 126/58 98 Room Air 98.0 09/10/17 20:00 97.3 65 20 126/75 98 Room Air 97.3 09/10/17 20:00 66 09/10/17 19:37 Room Air 21 09/10/17 19:37 97 Room Air 21 09/10/17 19:36 81 18 Room Air 21 09/10/17 16:00 58 09/10/17 16:00 96.9 60 20 123/65 98 Room Air 96.9 Intake and Output 09/10/17 09/11/17 19:00 07:00 Intake Total 550 ml 600 ml Balance 550 ml 600 ml Intake Oral 150 ml IV Total 400 ml 600 ml # Voids 2 2 Laboratory Tests Test 09/10/17 15:35 09/10/17 20:00 Urine Color Yellow Urine Appearance Clear Urine pH 6 (4.5-8.0) Urine Specific [place] 1.015 (1.005-1.035) Urine Protein Negative (NEGATIVE) Urine Glucose (UA) Negative (NEGATIVE) Urine Ketones 1+ (NEGATIVE) H Urine Occult Blood Negative (NEGATIVE) Urine Nitrite Negative (NEGATIVE) Urine Bilirubin Negative (NEGATIVE) Urine Urobilinogen 4 MG/DL (0.0-1.0) H Urine Leukocyte Esterase Negative (NEGATIVE) White Blood Count 7.4 K/UL (4.8-10.8) Red Blood Count 2.75 M/UL (4.70-6.10) L Hemoglobin 9.8 G/DL (14.2-18.0) L Hematocrit 29.1 % (42.0-52.0) L Mean Corpuscular Volume 106 FL (80-99) H Mean Corpuscular Hemoglobin 35.8 PG (27.0-31.0) H Mean Corpuscular Hemoglobin Concent 33.9 G/DL (32.0-36.0) Red Cell Distribution Width 17.1 % (11.6-14.8) H Platelet Count 167 K/UL (150-450) Mean Platelet Volume 7.2 FL (6.5-10.1) Neutrophils (%) (Auto) 66.1 % (45.0-75.0) Lymphocytes (%) (Auto) 20.9 % (20.0-45.0) Monocytes (%) (Auto) 6.4 % (1.0-10.0) Eosinophils (%) (Auto) 4.1 % (0.0-3.0) H Basophils (%) (Auto) 2.4 % (0.0-2.0) H Sodium Level 139 MMOL/L (136-145) Potassium Level 3.8 MMOL/L (3.5-5.1) Chloride Level 110 MMOL/L (98-107) H Carbon Dioxide Level 19 MMOL/L (21-32) L Anion Gap 10 mmol/L (5-15) Blood Urea Nitrogen 26 mg/dL (7-18) H Creatinine 1.7 MG/DL (0.55-1.30) H Estimat Glomerular Filtration Rate mL/min (>60) Glucose Level 132 MG/DL (74-106) H Hemoglobin A1c 3.8 % (4.3-6.0) L Calcium Level 8.4 MG/DL (8.5-10.1) L Magnesium Level 1.8 MG/DL (1.8-2.4) Lactate Dehydrogenase 258 U/L (81-234) H Troponin I 0.014 ng/mL (0.000-0.056) C-Reactive Protein, Quantitative 2.7 mg/dL (0.00-0.90) H Triglycerides Level 64 MG/DL (30-150) Cholesterol Level 100 MG/DL (< 200) LDL Cholesterol 73 mg/dL (<100) HDL Cholesterol 11 MG/DL (40-60) L Cholesterol/HDL Ratio 9.1 (3.3-4.4) H Lipase 324 U/L (73-393) Thyroid Stimulating Hormone (TSH) 3.464 uiU/mL (0.358-3.740) Serum Alcohol < 3 mg/dL Height (Feet): 5 Height (Inches): 10.00 Weight (Pounds): 175 General Appearance: WD/WN, no apparent distress, alert, thin Cardiovascular: normal rate Respiratory/Chest: normal breath sounds, no respiratory distress Abdominal Exam: normal bowel sounds, non tender, soft, ascites Extremities: normal range of motion, non-tender Ynes Meneses NP September 11, 2017 13:43
[2017-09-11] MEDS: D5 1/2NS 1,000 ML IV SCH (13:44)
[2017-09-11] MEDS: traMADol 50mg tab ORAL PRN (13:55)
--- NOTE | 2017-09-11 14:37 | Discharge Summary ---
Discharge Summary Hospital Course Date of Admission September 09, 2017 at 17:09 Date of Discharge Admitting Diagnosis dyspnea, ascites HPI Karthik Quiroga is a 81 year old male who was admitted on September 09, 2017 at 17:09 for Dyspnea,Ascites This is a 81 y/o male with a PMH of liver cirrhosis w/ ascites, renal insufficiency, HTN, anemia, BPH, pancreatitis, pancytopenia, CAD s/p PCI with TIGRE x 2 in 2013, and s/p cervical fusion who presented to ED for SOB. Patient states that SOB was worsening, and his PCP doctor at [facility] advised him to go to the ER. Patient also reports generalized abdominal pain but no nausea or vomiting. Patient was noted to have a K of 5.7 and was given kayexalate in the ER and lipase in the 300s. Paracentesis was ordered per ED given ascites and SOB. Patient also stated that he was recently admitted to [facility] from 08/25-. Per chart review from [facility], patient was aditted for dizziness and generalized weakness which was attributed to the lasix and aldactone he was previously on. Patient was also noted to have pancreatitis, which resolved while he was in the hospital. Lasix and aldactone subsequently were stopped also given hyperkalemia. Patient underwent paracentesis on 09/03 with 3L out along with 25g albumin. Patient's blood pressure continued to remain low and therefore metoprolol was discontinued upon discharge from [facility]..Patient's Cr improved from 1.8 to 1.1 upon discharge. Patient was also noted to have poor PO intake and was started on megace. At this time, patient denies any chest pain, n /v, focal deficits, headaches, f/c, d/c. Denies alcohol or tobacco abuse. Consultations GI, Dr. Gilliladn Procedures Paracentesis s/p 1.5L out Hospital Course Patient underwent a paracentesis with 1.5L out and SOB improved. GI was consulted. Patient was also placed NPO and on IVF given elevated lipase. Patient 's abdominal pain improved and patient was started on CLD and advanced to regular. Patient's Cr also increased from 1.5 to 1.7. Abdominal ultrasound also showed CBD of 8mm. No gallstones. Downstream obstruction not completely excludable. Equivocal slight hepatic surface nodularity, could indicate cirrhotic changes. Per GI, no MRCP was indicated but given recurrent pancreatitis, CT a/p was ordered. However, patient refused. Patient also complained of left hip pain and left hip XR was negative for acute fractures. Patient was therefore hemodynamically stable and transferred to [facility] for further monitoring of Cr. Signout was given to oncoming physician at [facility]. Discharge Condition Upon Discharge: improving Discharge Disposition Patient was discharged to [facility] hospital. Discharge Diagnoses: (1) Liver disease (2) Hyperkalemia (3) Liver cirrhosis (4) Anemia (5) Pancreatitis (6) Renal insufficiency (7) CAD S/P percutaneous coronary angioplasty (8) BPH (benign prostatic hyperplasia) (9) Ascites (10) Dyspnea (11) Left hip pain (12) Multiple falls (13) S/P drug eluting coronary stent placement Zoey Fernandes NP September 11, 2017 14:37
--- NOTE | 2017-09-11 15:45 | Consultation ---
History of Present Illness General Date patient seen: September 10, 2017 Chief Complaint: Dyspnea/Respdistress Referring physician: CHRIS MULLEN Reason for Consultation: CIRRHOSIS Present Illness HPI 81 y/o male with a PMH of liver cirrhosis w/ ascites, renal insufficiency, HTN, anemia, BPH, pancreatitis, pancytopenia, CAD s/p PCI with TIGRE x 2 in 2013, and s /p cervical fusion the pt has cognitive impairment and depressed Allergies: Coded Allergies: SULFA (SULFONAMIDE ANTIBIOTICS) (Unverified Allergy, Unknown, 09/09/17) Uncoded Allergies: SULFA (Allergy, Unknown, 09/09/17) Medication History Scheduled Aspirin* (Aspir 81*), 81 MG ORAL DAILY, (Reported) Cholecalciferol (Vitamin D3)* (Vitamin D*), 4,000 UNITS ORAL DAILY, (Reported) Clopidogrel* (Clopidogrel*), 75 MG ORAL DAILY, (Reported) Cyanocobalamin (Vitamin B-12)* (Vitamin B-12*), 1,000 MCG ORAL DAILY, (Reported) Donepezil Hcl* (Aricept*), 10 MG ORAL DAILY, (Reported) Folic Acid* (Folic Acid*), 1 MG ORAL DAILY, (Reported) Megestrol Acetate (Megestrol Acetate), 400 MG PO BID, (Reported) Mirtazapine* (Remeron*), 15 MG ORAL BEDTIME, (Reported) Pantoprazole* (Pantoprazole*), 40 MG ORAL DAILY, (Reported) Rosuvastatin Calcium* (Crestor*), 20 MG ORAL DAILY, (Reported) Silodosin (Rapaflo), 8 MG ORAL DAILY, (Reported) Tamsulosin Hcl (Tamsulosin Hcl*), 0.4 MG ORAL BEDTIME, (Reported) Patient History Limited by: medical condition History Provided By: PMD Healthcare decision maker Resuscitation status Full Code Advanced Directive on File No Past Medical/Surgical History Past Medical/Surgical History: (1) Liver disease (2) Hyperkalemia (3) Anemia (4) Liver cirrhosis (5) Pancreatitis (6) Renal insufficiency (7) BPH (benign prostatic hyperplasia) (8) CAD S/P percutaneous coronary angioplasty (9) Ascites (10) Dyspnea (11) Left hip pain (12) Multiple falls Review of Systems Psychiatric: Reports: prior hx, anxiety, depressed feelings, emotional problems Physical Exam General Appearance: no apparent distress, alert Neurologic: depressed affect Last 24 Hour Vital Signs Date Time Temp Pulse Resp B/P (MAP) Pulse Ox O2 Delivery O2 Flow Rate FiO2 09/11/17 13:55 97.8 09/11/17 12:00 65 09/11/17 12:00 97.8 69 18 120/69 99 Room Air 97.8 09/11/17 08:11 Room Air 21 09/11/17 08:11 84 18 Room Air 21 09/11/17 08:11 97 Room Air 09/11/17 08:00 98.0 71 18 157/85 94 Room Air 98.0 09/11/17 08:00 71 09/11/17 04:00 65 09/11/17 04:00 97.5 65 20 141/68 99 Room Air 97.5 09/11/17 00:00 68 09/11/17 00:00 98.0 66 20 126/58 98 Room Air 98.0 09/10/17 20:00 97.3 65 20 126/75 98 Room Air 97.3 09/10/17 20:00 66 09/10/17 19:37 Room Air 21 09/10/17 19:37 97 Room Air 21 09/10/17 19:36 81 18 Room Air 21 09/10/17 16:00 58 09/10/17 16:00 96.9 60 20 123/65 98 Room Air 96.9 Intake and Output 09/10/17 09/11/17 19:00 07:00 Intake Total 550 ml 600 ml Balance 550 ml 600 ml Intake Oral 150 ml IV Total 400 ml 600 ml # Voids 2 2 Laboratory Tests Test 09/10/17 20:00 White Blood Count 7.4 K/UL (4.8-10.8) Red Blood Count 2.75 M/UL (4.70-6.10) L Hemoglobin 9.8 G/DL (14.2-18.0) L Hematocrit 29.1 % (42.0-52.0) L Mean Corpuscular Volume 106 FL (80-99) H Mean Corpuscular Hemoglobin 35.8 PG (27.0-31.0) H Mean Corpuscular Hemoglobin Concent 33.9 G/DL (32.0-36.0) Red Cell Distribution Width 17.1 % (11.6-14.8) H Platelet Count 167 K/UL (150-450) Mean Platelet Volume 7.2 FL (6.5-10.1) Neutrophils (%) (Auto) 66.1 % (45.0-75.0) Lymphocytes (%) (Auto) 20.9 % (20.0-45.0) Monocytes (%) (Auto) 6.4 % (1.0-10.0) Eosinophils (%) (Auto) 4.1 % (0.0-3.0) H Basophils (%) (Auto) 2.4 % (0.0-2.0) H Sodium Level 139 MMOL/L (136-145) Potassium Level 3.8 MMOL/L (3.5-5.1) Chloride Level 110 MMOL/L (98-107) H Carbon Dioxide Level 19 MMOL/L (21-32) L Anion Gap 10 mmol/L (5-15) Blood Urea Nitrogen 26 mg/dL (7-18) H Creatinine 1.7 MG/DL (0.55-1.30) H Estimat Glomerular Filtration Rate mL/min (>60) Glucose Level 132 MG/DL (74-106) H Hemoglobin A1c 3.8 % (4.3-6.0) L Calcium Level 8.4 MG/DL (8.5-10.1) L Magnesium Level 1.8 MG/DL (1.8-2.4) Lactate Dehydrogenase 258 U/L (81-234) H Troponin I 0.014 ng/mL (0.000-0.056) C-Reactive Protein, Quantitative 2.7 mg/dL (0.00-0.90) H Triglycerides Level 64 MG/DL (30-150) Cholesterol Level 100 MG/DL (< 200) LDL Cholesterol 73 mg/dL (<100) HDL Cholesterol 11 MG/DL (40-60) L Cholesterol/HDL Ratio 9.1 (3.3-4.4) H Lipase 324 U/L (73-393) Thyroid Stimulating Hormone (TSH) 3.464 uiU/mL (0.358-3.740) Serum Alcohol < 3 mg/dL Height (Feet): 5 Height (Inches): 10.00 Weight (Pounds): 175 Medications Current Medications Medications (Trade) Dose Ordered Sig/Glenn Route PRN Reason Start Time Stop Time Status Last Admin Dose Admin Acetaminophen (Tylenol) 650 mg Q6H PRN ORAL T>100.5 09/09/17 18:45 10/09/17 18:44 Albuterol/ Ipratropium (Albuterol/ Ipratropium) 3 ml TIDPRN PRN HHN Shortness of Breath 09/09/17 18:45 09/14/17 18:44 Aspirin (ASA) 81 mg DAILY ORAL 09/10/17 09:00 10/10/17 08:59 09/11/17 10:24 Atorvastatin Calcium (Lipitor) 20 mg BEDTIME ORAL 09/10/17 21:00 10/10/17 20:59 Clopidogrel Bisulfate (Plavix) 75 mg DAILY ORAL 09/11/17 09:00 10/11/17 08:59 09/11/17 10:24 Cyanocobalamin (Vitamin B-12) 1,000 mcg DAILY ORAL 09/10/17 09:00 10/10/17 08:59 09/11/17 10:24 Dextrose (Dextrose 50%) 25 ml STAT PRN IV Hypoglycemia 09/09/17 18:45 10/09/17 18:44 Dextrose (Dextrose 50%) 50 ml STAT PRN IV Hypoglycemia 09/09/17 18:45 10/09/17 18:44 Dextrose/Sodium Chloride 1,000 ml @ 50 mls/hr Q20H IV 09/09/17 19:32 10/09/17 19:31 09/11/17 13:44 Diatrizoate Meglum/ Diatrizoate Sod (Gastrografin) 30 ml NOW PRN ORAL Radiology Procedure 09/10/17 14:00 Diphenhydramine HCl (Benadryl) 25 mg Q6H PRN ORAL Itching/Pruritis 09/09/17 18:45 10/09/17 18:44 Donepezil HCl (Aricept) 10 mg QHS ORAL 09/10/17 21:00 10/10/17 20:59 Folic Acid (Folate) 1 mg DAILY ORAL 09/10/17 09:00 10/10/17 08:59 09/11/17 10:24 Iopamidol (Isovue-300 100ml) 100 ml NOW PRN INJ Radiology Procedure 09/10/17 14:00 Megestrol Acetate (Megace) 400 mg TWICE A DAY ORAL 09/10/17 09:00 10/10/17 08:59 09/11/17 10:24 Mirtazapine (Remeron) 15 mg BEDTIME ORAL 09/10/17 21:00 10/10/17 20:59 Ondansetron HCl (Zofran) 4 mg Q6H PRN IVP Nausea & Vomiting 09/09/17 18:45 10/09/17 18:44 Pantoprazole (Protonix) 40 mg DAILY ORAL 09/10/17 09:00 10/10/17 08:59 09/11/17 10:24 Tamsulosin HCl (Flomax) 0.4 mg BEDTIME ORAL 09/10/17 21:00 10/10/17 20:59 Tramadol HCl (Ultram) 50 mg Q6H PRN ORAL Moderate Breakthru Pain (5-7) 09/09/17 19:00 09/16/17 18:59 09/11/17 13:55 Vitamin D (Vitamin D) 4,000 intlu DAILY ORAL 09/10/17 09:00 10/10/17 08:59 09/11/17 10:24 Assessment/Plan Assessment/Plan mdd anxiety remeron 15mg qhs Tu Contreras M.D. September 11, 2017 15:45
--- NOTE | 2017-09-11 15:46 | General Progress Note ---
Assessment/Plan Status: stable, progressing Assessment/Plan mdd anxiety remeron 15mg qhs Subjective Date patient seen: September 11, 2017 Neurologic/Psychiatric: Reports: anxiety, depressed, emotional problems Allergies: Coded Allergies: SULFA (SULFONAMIDE ANTIBIOTICS) (Unverified Allergy, Unknown, 09/09/17) Uncoded Allergies: SULFA (Allergy, Unknown, 09/09/17) Objective Last 24 Hour Vital Signs Date Time Temp Pulse Resp B/P (MAP) Pulse Ox O2 Delivery O2 Flow Rate FiO2 09/11/17 13:55 97.8 09/11/17 12:00 65 09/11/17 12:00 97.8 69 18 120/69 99 Room Air 97.8 09/11/17 08:11 Room Air 21 09/11/17 08:11 84 18 Room Air 21 09/11/17 08:11 97 Room Air 09/11/17 08:00 98.0 71 18 157/85 94 Room Air 98.0 09/11/17 08:00 71 09/11/17 04:00 65 09/11/17 04:00 97.5 65 20 141/68 99 Room Air 97.5 09/11/17 00:00 68 09/11/17 00:00 98.0 66 20 126/58 98 Room Air 98.0 09/10/17 20:00 97.3 65 20 126/75 98 Room Air 97.3 09/10/17 20:00 66 09/10/17 19:37 Room Air 21 09/10/17 19:37 97 Room Air 21 09/10/17 19:36 81 18 Room Air 21 09/10/17 16:00 58 09/10/17 16:00 96.9 60 20 123/65 98 Room Air 96.9 Intake and Output 09/10/17 09/11/17 19:00 07:00 Intake Total 550 ml 600 ml Balance 550 ml 600 ml Intake Oral 150 ml IV Total 400 ml 600 ml # Voids 2 2 Laboratory Tests 09/10/17 20:00: White Blood Count 7.4, Red Blood Count 2.75L, Hemoglobin 9.8L, Hematocrit 29.1L , Mean Corpuscular Volume 106H, Mean Corpuscular Hemoglobin 35.8H, Mean Corpuscular Hemoglobin Concent 33.9, Red Cell Distribution Width 17.1H, Platelet Count 167, Mean Platelet Volume 7.2, Neutrophils (%) (Auto) 66.1, Lymphocytes (%) (Auto) 20.9, Monocytes (%) (Auto) 6.4, Eosinophils (%) (Auto) 4.1H, Basophils (%) (Auto) 2.4H, Sodium Level 139, Potassium Level 3.8, Chloride Level 110H, Carbon Dioxide Level 19L, Anion Gap 10, Blood Urea Nitrogen 26H, Creatinine 1.7H, Estimat Glomerular Filtration Rate , Glucose Level 132H, Hemoglobin A1c 3.8L, Calcium Level 8.4L, Magnesium Level 1.8, Lactate Dehydrogenase 258H, Troponin I 0.014, C-Reactive Protein, Quantitative 2.7H, Triglycerides Level 64, Cholesterol Level 100, LDL Cholesterol 73, HDL Cholesterol 11L, Cholesterol/HDL Ratio 9.1H, Lipase 324, Thyroid Stimulating Hormone (TSH) 3.464, Serum Alcohol < 3 Height (Feet): 5 Height (Inches): 10.00 Weight (Pounds): 175 General Appearance: WD/WN, no apparent distress, alert Neurologic: depressed affect Tu Contreras M.D. September 11, 2017 15:46
== END 2017-09-11 16:47 | disposition short-term general hospital (02) | DRG 432 ==
LOC: EDBD 16:13 → EMR 17:08 → 2E 17:09 → EDBEDREQ 17:33 → 2E 09-10 07:50
PROC: 0W9G3ZZ Drainage of Peritoneal Cavity, Percutaneous Approach (ICD-10-PCS; principal; 2017-09-09)
DX: K74.60 Unspecified cirrhosis of liver (principal); K85.90 Acute pancreatitis without necrosis or infection, unspecified; R18.8 Other ascites; D61.818 Other pancytopenia; E87.5 Hyperkalemia; G30.9 Alzheimer's disease, unspecified; F02.80 Dementia in other diseases classified elsewhere, unspecified severity, without behavioral disturbance, psychotic disturbance, mood disturbance, and anxiety; I10 Essential (primary) hypertension; D64.9 Anemia, unspecified; I25.10 Atherosclerotic heart disease of native coronary artery without angina pectoris; Z95.5 Presence of coronary angioplasty implant and graft; N28.9 Disorder of kidney and ureter, unspecified; N40.0 Benign prostatic hyperplasia without lower urinary tract symptoms; M25.552 Pain in left hip; W19.XXXA Unspecified fall, initial encounter; Z91.81 History of falling; Y92.9 Unspecified place or not applicable; F32.9 Major depressive disorder, single episode, unspecified; F41.9 Anxiety disorder, unspecified; R06.00 Dyspnea, unspecified
CPT/HCPCS: 36415; 71045; 73521; 76700; 76942; 80048; 80053; 80061; 80329; 81003; 82248; 82550; 82553; 83036; 83615; 83690; 83735; 83880; 84443; 84484; 85025; 85610; 85730; 86140; 87040; 87070; 87081; 87205; 88104; 93005; 94664; 94760; 99285